=== PATIENT | female | born 1980 | race Caucasian/White ===

== ENCOUNTER 2021-01-14 21:36 | Emergency (ER) | payer BC ==
[~2021-01-14] VITALS: Ht 160 cm; Wt 76.2 kg
[~2021-01-14 21:36] MED LIST: LAMO200T6 PO; ONDA4TAB13 PO; PANT40TA3 PO; PROP80CA55 PO
[2021-01-14 21:46] VITALS: BP 140/111
--- NOTE | 2021-01-14 21:49 | ER.PDOC ---
General Chief Complaint: Requesting Medical Care Stated Complaint: MIGRAINE Source: patient History of Present Illness Initial Comments 41-year-old female with history of migraines presents with complaint of migraine for several days. Per patient her headache is on the left side of her head. She states this is her typical migraine.She states she sees a neurologist who is [place] of the [place] and she has run out of all of her medications. Per patient she took Imitrex Fioricet with codeine Compazine Benadryl and a total of 4500 mg of Tylenol today last dose at 1900. She states she still has pain. Patient complains of photophobia And one episode of vomiting. Allergies: Coded Allergies: metoclopramide (Verified Allergy, Intermediate, 12/25/20) hives, trouble breathing NSAIDS (Non-Steroidal Anti-Inflamma (Verified Allergy, Unknown, throat swells, 08/16/16) Penicillins (Verified Allergy, Unknown, rash, 08/16/16) aspirin (Verified Allergy, Unknown, throat swells, 08/16/16) ciprofloxacin (Verified Allergy, Unknown, rash, 08/16/16) ketorolac (Verified Allergy, Unknown, throat swells, 08/16/16) Home Meds Active Scripts Ondansetron (ONDANSETRON ODT) 4 Mg Tab.rapdis, 4 MG PO Q8 for 7 Days, TAB Prov:TRINO MALHOTRA MD 12/26/20 Pantoprazole Sodium (PROTONIX) 40 Mg Tablet.dr, 40 MG PO DAILY24 for 14 Days Prov:TRINO MALHOTRA MD 12/26/20 Reported Medications Propranolol HCl (Inderal Xl) 80 Mg Cap.er.24h, 1 CAP PO HS for 30 Days, #30 CAP 0 Refills 12/25/20 Lamotrigine (LAMOTRIGINE) 200 Mg Tablet, 300 MG PO BID, TAB 12/25/20 Past Medical History Medical History: asthma, other Surgical History: appendectomy, cholecystectomy, , hysterectomy Social History Drug Use: none Review of Systems Constitutional: no symptoms reported Eyes: photophobia Ears, Nose, Mouth, Throat: no symptoms reported Respiratory: no symptoms reported Cardiovascular: no symptoms reported Gastrointestinal: no symptoms reported Musculoskeletal: no symptoms reported Skin: no symptoms reported Psychiatric/Neurological: headache Physical Exam General Appearance: No Apparent Distress, WD/WN, Other (When I entered the room the patient was on her cell phone. She also ambulated in the emergency department no acute distress no apparent reaction to the amount of light in the hallway.) Head/Eyes: eyes nml inspection, no nystagmus, PERRL ENT: nml ENT inspection Neck: nml inspection, Supple Cardiovascular: Normal Peripheral Pulses, Regular Rate, Rhythm Respiratory: no respiratory distress Extremities: Normal Range of Motion, Normal Inspection Psychiatric: Alert, Oriented x 3 Coordination/Gait: Normal Gait Motor/Sensory: No Motor Deficit Skin: Warm/Dry, Normal Color Results/Orders Results/Orders Orders - VITA VASQUEZ MD Prochlorperazine Edisylate (Compazine) (01/14/21 22:19) 0.9 % Sodium Chloride (Ns 1000ml) (01/14/21 22:30) Haloperidol Lactate (Haldol) (01/14/21 22:19) Diphenhydramine Hcl (Benadryl) (01/14/21 22:19) 0.9 % Sodium Chloride (Ns 1000ml) (01/14/21 22:30) Diphenhydramine Hcl (Benadryl) (01/14/21 22:30) Prochlorperazine Edisylate (Compazine) (01/14/21 22:30) Haloperidol Lactate (Haldol) (01/14/21 22:30) Butalb/Acetaminophen/Caffeine (Fioricet) (01/14/21 22:44) Comprehensive Metabolic Panel (01/14/21 23:40) Acetaminophen(Ml) (01/14/21 23:40) Hydrocodone/Acetaminophen ([place] 5mg) (01/15/21 00:23) Dexamethasone Sodium Phosphate (Decadron (01/15/21 00:30) Dexamethasone Sodium Phosphate (Decadron (01/15/21 00:53) Hydrocodone/Acetaminophen ([place] 5mg) (01/15/21 00:53) Dexamethasone Sodium Phosphate (Decadron (01/15/21 00:55) Vital Signs Date Time Temp Pulse Resp B/P (MAP) Pulse Ox O2 Delivery O2 Flow Rate FiO2 01/14/21 21:46 98.0 85 20 98 01/14/21 21:46 98.0 85 20 527/21 21:46 98.0 85 20 140/111 (121) 98 Room Air Laboratory Tests Test 01/14/21 23:49 Sodium Level 147 mmol/L (132-145) H Potassium Level 3.7 mmol/L (3.6-5.2) Chloride Level 112.0 mmol/L (96-109) H Carbon Dioxide Level 23.0 mmol/L (20.0-32) Anion Gap 15.7 Blood Urea Nitrogen 18 mg/dL (7-18) Creatinine 1.02 mg/dL (0.59-1.40) Estimated GFR () 72.6 (>/=60) Est GFR (CKD-EPI)(Non-Afr [place]) 60.0 (>/=60) BUN/Creatinine Ratio 17.0 Glucose Level 97 mg/dL (70-110) Calcium Level 8.0 mg/dL (8.4-10.5) L Total Bilirubin 0.3 mg/dL (0.2-1.0) Aspartate Amino Transferase (AST) 13 U/L (0-35) Alanine Aminotransferase (ALT) 18 U/L (12-78) Alkaline Phosphatase 91 U/L (50-136) Total Protein 6.1 g/dL (6.4-8.2) L Albumin 3.5 g/dL (3.4-5.0) Globulin 2.6 Albumin/Globulin Ratio 1.346 Acetaminophen Level < 3 ug/mL (10-30) L Progress Progress Patient already has multiple allergies listed. Per patient list she is allergic to all NSAIDs. She states she has already taken 4500 mg of Tylenol today. I attempted to give her Haldol for her pain and she told the nurse that she is allergic to Haldol it makes her call out of her skin. Please note Haldol is not listed on her allergy list. Patient will be given a Fioricet pill along with her normal saline Compazine and Benadryl. ER DEPART Departure Time of Disposition: 01:14 Disposition: 01 HOME / SELF CARE / HOMELESS Impression: Primary Impression: Migraine Condition: Stable Referrals: EMILIE HORVATH MD (PCP) PRIMARY CARE PROVIDER Duration or Time Spent with Pa: 20 min VITA VASQUEZ MD January 14, 2021 21:49
[2021-01-14] MEDS ORDERED: HALDOL IV STA (22:19)
[2021-01-14] MEDS ORDERED: COMPAZINE IV STA (22:19)
[2021-01-14] MEDS ORDERED: BENADRYL IV STA (22:19)
--- NOTE | 2021-01-14 22:20 | NUR ---
PT REPORTS TO ER W/MIGRAINE. PT REPORTS TAKING ALL OF HER PRESCRIBED MEDICATIONS WITHOUT RELIEF. PT REPORTS TAKING TYLENOL 4500 MG TODAY. PT REPORTS BEING OUT OF SEVERAL OF HER MIGRAINE MEDICATIONS. AT BEDSIDE PLAYING ON PHONE
[2021-01-14] MEDS ORDERED: BENADRYL ONE (22:30)
[2021-01-14] MEDS ORDERED: COMPAZINE ONE (22:30)
[2021-01-14] MEDS ORDERED: NS 1000ML 1,000 ML IV ONE (22:30)
[2021-01-14] MEDS ORDERED: NS 1000ML 1,000 ML ONE (22:30)
[2021-01-14] MEDS ORDERED: HALDOL ONE (22:30)
[2021-01-14] MEDS ORDERED: FIORICET PO STA (22:44)
[2021-01-15 00:10] LABS: ALANINE AMINOTRANSFERASE(ML) 18 U/L (12-78); ALKALINE PHOSPHATASE 91 U/L (50-136); ASPARTATE AMINO TRANSFERASE 13 U/L (0-35); GLUCOSE 97 mg/dL (70-110)
[2021-01-15] MEDS ORDERED: NORCO 5MG PO STA (00:23)
[2021-01-15] MEDS ORDERED: DECADRON IV SCH (00:30)
[2021-01-15] MEDS ORDERED: DECADRON ONE ×2 (00:53→00:55)
[2021-01-15] MEDS ORDERED: NORCO 5MG PO ONE (00:53)
--- NOTE | 2021-01-15 01:23 | NUR ---
IV DC'D TIP INTACT, PT REPORTS RELIEF FROM MIGRAINE WITH ER POC. PT AMBLATED TO POV W/OUT DIFFICULTY.
== END 2021-01-15 01:24 | disposition home or self-care (01) ==
LOC: ER 21:36
DX: G43.909 Migraine, unspecified, not intractable, without status migrainosus (principal)
CPT/HCPCS: 36415; 80053; 80299; 96361; 96374; 96375; 99284; J0780; J1100 ×2; J1200; J7030; 99281; J1630

== ENCOUNTER 2021-03-18 22:44 | Emergency (ER) | payer BC ==
[~2021-03-18] VITALS: Ht 160 cm; Wt 76.2 kg
--- NOTE | 2021-03-18 22:45 | NUR ---
Ambulated to Room Ambulated to room. at bedside. Alert and oriented x3. c/o of stomach pains x2 hours with vomiting x6 times. 20g to left wrist x1 attempt. patent with no s/s of edema or redness.
--- NOTE | 2021-03-18 22:50 | NUR ---
Unable to Void at this time for UA
[2021-03-18] MEDS ORDERED: MORPHINE SULFATE IV STA (22:54)
[2021-03-18] MEDS ORDERED: COMPAZINE PO STA ×2 (22:54→23:09)
[2021-03-18] MEDS ORDERED: BENADRYL IV STA (22:54)
--- NOTE | 2021-03-18 22:58 | ER.PDOC ---
General Chief Complaint: Requesting Medical Care Stated Complaint: VOMITING Time seen by MD: 22:57 Source: patient Exam Limitations: no limitations History of Present Illness Initial Comments Patient is a 41-year-old female with a history of seizure disorder presents today with abdominal pain. Symptoms began approximately 2 hours prior to arrival, she describes diffuse abdominal pain with no focal findings. Patient also endorses nausea and vomiting. Pain is constant. Allergies: Coded Allergies: metoclopramide (Verified Allergy, Intermediate, 12/25/20) hives, trouble breathing NSAIDS (Non-Steroidal Anti-Inflamma (Verified Allergy, Unknown, throat swells, 08/16/16) Penicillins (Verified Allergy, Unknown, rash, 08/16/16) aspirin (Verified Allergy, Unknown, throat swells, 08/16/16) ciprofloxacin (Verified Allergy, Unknown, rash, 08/16/16) ketorolac (Verified Allergy, Unknown, throat swells, 08/16/16) Home Meds Active Scripts Ondansetron (ONDANSETRON ODT) 4 Mg Tab.rapdis, 4 MG PO Q8 for 7 Days, TAB Prov:TRINO MALHOTRA MD 12/26/20 Pantoprazole Sodium (PROTONIX) 40 Mg Tablet.dr, 40 MG PO DAILY24 for 14 Days Prov:TRINO MALHOTRA MD 12/26/20 Reported Medications Propranolol HCl (Inderal Xl) 80 Mg Cap.er.24h, 1 CAP PO HS for 30 Days, #30 CAP 0 Refills 12/25/20 Lamotrigine (LAMOTRIGINE) 200 Mg Tablet, 300 MG PO BID, TAB 12/25/20 Vital Signs First Vital Signs Date Time Temp Pulse Resp B/P (MAP) Pulse Ox O2 Delivery O2 Flow Rate FiO2 03/18/21 23:28 97.8 110 18 151/82 (105) 95 Room Air Last Vital Signs Date Time Temp Pulse Resp B/P (MAP) Pulse Ox O2 Delivery O2 Flow Rate FiO2 03/18/21 23:28 97.8 110 18 03/18/21 23:28 151/82 (105) 95 Room Air Past Medical History Medical History: asthma, other Surgical History: appendectomy, cholecystectomy, , hysterectomy Social History Drug Use: none Reviewed Nursing Reviewed: Vital Signs, Abn. Noted, Nursing Assessment Constitutional: denies no symptoms reported, denies see HPI, denies chills, denies diaphoresis, denies fever, denies malaise, denies weakness, denies other EENTM: denies no symptoms reported, denies see HPI, denies eye pain, denies blurred vision, denies tearing, denies double vision, denies ear pain, denies ear discharge, denies nose pain, denies nose congestion, denies throat pain, denies throat swelling, denies mouth pain, denies mouth swelling, denies other Respiratory: denies no symptoms reported, denies see HPI, denies cough, denies orthopnea, denies shortness of breath, denies SOB with exertion, denies SOB at rest, denies stridor, denies wheezing, denies other Cardiovascular: denies no symptoms reported, denies see HPI, denies chest pain, denies edema, denies irregular heart rate, denies lightheadedness, denies palpitations, denies syncope, denies other Gastrointestinal: see HPI Genitourinary: denies no symptoms reported, denies see HPI, denies burning, denies dysuria, denies discharge, denies frequency, denies flank pain, denies hematuria, denies incontinence, denies pain, denies urgency, denies other Musculoskeletal: denies no symptoms reported, denies see HPI, denies back pain, denies gout, denies joint pain, denies joint swelling, denies muscle pain, denies muscle stiffness, denies neck pain, denies other Skin: denies no symptoms reported, denies see HPI, denies change in color, denies change in hair/nails, denies dryness, denies lesions, denies lumps, denies rash, denies other Psychiatric/Neurological: denies no symptoms reported, denies see HPI, denies anxiety, denies depressed, denies emotional problems, denies headache, denies numbness, denies paresthesia, denies pre-existing deficit, denies seizure, denies tingling, denies tremors, denies weakness, denies other Endocrine: denies no symptoms reported, denies see HPI, denies excessive sweating, denies flushing, denies intolerance to cold, denies intolerance to heat, denies increased hunger, denies increased thrist, denies increased urine, denies unexplained weight gain, denies unexplaned weight loss, denies other Hematologic/Lymphatic: denies no symptoms reported, denies see HPI, denies anemia, denies blood clots, denies easy bleeding, denies easy bruising, denies swollen glands, denies other All Other Systems: Reviewed and Negative Physical Exam General Appearance: No Apparent Distress, WD/WN HEENT: PERRL/EOMI, Normal ENT Inspection, TMs Normal, Pharynx Normal Neck: Non-Tender, Full Range of Motion, Supple, Normal Inspection Respiratory: chest non-tender, lungs clear, normal breath sounds, no respiratory distress, no accessory muscle use Cardiovascular: Normal Peripheral Pulses, Regular Rate, Rhythm, No Edema, No Gallop, No JVD, No Murmur Gastrointestinal: Soft, Tenderness Extremities: Normal Range of Motion, Non-Tender, Normal Inspection, No Pedal Edema, No Calf Tenderness, Normal Capillary Refill, Pelvis Stable Neurologic/Psychiatric: card placer II-XII NML as Tested, No Motor/Sensory Deficits, Alert, Normal Mood/Affect, Oriented x 3 Skin: Normal Color, Warm/Dry Lymphatic: No Adenopathy Results/Orders Results/Orders Orders - FRANCESCO SAWYER DO Cbc With Auto Diff (03/18/21 22:54) Comprehensive Metabolic Panel (03/18/21 22:54) Amylase (03/18/21 22:54) Lipase (03/18/21 22:54) Helicobacter Pylori (03/18/21 22:54) PT (03/18/21 22:54) Ct Abd/Pel With Iv Contrast (03/18/21 22:54) Partial Thromboplastin Time. (03/18/21 22:54) Urinalysis (03/18/21 22:54) Saline Lock (03/18/21 22:54) Prochlorperazine Maleate (Compazine) (03/18/21 22:54) Diphenhydramine Hcl (Benadryl) (03/18/21 22:54) Morphine Sulfate (Morphine Sulfate) (03/18/21 22:54) Hcg Qualitative Serum (03/18/21 22:54) Diphenhydramine Hcl (Benadryl) (03/18/21 23:02) Morphine Sulfate (Morphine Sulfate) (03/18/21 23:02) Prochlorperazine Maleate (Compazine) (03/18/21 23:09) Haloperidol Lactate (Haldol) (03/19/21 00:25) Haloperidol Lactate (Haldol) (03/19/21 00:30) Vital Signs Date Time Temp Pulse Resp B/P (MAP) Pulse Ox O2 Delivery O2 Flow Rate FiO2 03/18/21 23:28 97.8 110 18 03/18/21 23:28 97.8 110 18 03/18/21 23:28 97.8 110 18 151/82 (105) 95 Room Air Administered Medications Medications (Trade) Dose Ordered Sig/[place] Route PRN Reason Start Time Stop Time Status Last Admin Dose Admin Diphenhydramine HCl (Benadryl) 25 mg STAT STAT IV 03/18/21 22:54 03/18/21 22:58 DC 03/18/21 23:08 25 MG Morphine Sulfate (Morphine Sulfate) 2 mg STAT STAT IV 03/18/21 22:54 03/18/21 22:58 DC 03/18/21 23:08 2 MG Prochlorperazine Maleate (Compazine) 10 mg STAT STAT PO 03/18/21 23:09 03/18/21 23:11 DC 03/18/21 23:10 10 MG Laboratory Tests Test 03/18/21 00:00 03/18/21 23:05 Urine Collection Type CCMS Urine Color YELLOW Urine Appearance CLEAR Urine Bilirubin NEGATIVE (NEGATIVE) Urine Ketones NEGATIVE (NEGATIVE) Urine Specific [place] <=1.005 (1.005-1.030) Urine pH 5.5 (4.5-8.0) Urine Protein NEGATIVE (NEGATIVE) Urine Urobilinogen 0.2 E.U./dL (0.2) Urine Nitrate NEGATIVE (NEGATIVE) Urine Leukocyte Esterase NEGATIVE (NEGATIVE) Urine Glucose (Auto)(UA) NEGATIVE (NEGATIVE) Urine Blood NEGATIVE (NEGATIVE) White Blood Count 18.1 10^3/uL (4.5-11.0) H Red Blood Count 5.19 10^6/uL (4.00-5.20) Hemoglobin 15.6 g/dL (12.0-15.0) H Hematocrit 46.8 % (36.0-46.0) H Mean Corpuscular Volume 90.2 fL (78-100) Mean Corpuscular Hemoglobin 30.1 pg (26-34) Mean Corpuscular Hemoglobin Concent 33.3 g/dL (33-36.5) Red Cell Distribution Width 12.1 % (11.5-14.5) Platelet Count 256 10^3/uL (150-400) Mean Platelet Volume 11.6 fL (7.8-11.0) H Neutrophils (%) (Auto) 87.8 % (41.0-85.0) H Lymphocytes (%) (Auto) 8.5 % (24.0-44.0) L Monocytes (%) (Auto) 3.0 % (5.0-12.0) L Neutrophils # (Auto) 15.9 10^3/uL (1.8-7.7) H Lymphocytes # (Auto) 1.54 10^3/uL1 (1.0-4.8) Monocytes # (Auto) 0.6 10^3/uL (0.3-0.8) Absolute Immature Granulocyte (auto 0.03 10^3 u/L (0-2) Absolute Eosinophils (auto) 0.1 10^3/uL (0.0-0.2) Immature Granulocytes % 0.20 % (0.00-0.50) Eosinophils % 0.3 % (0.0-5.0) Basophils % 0.2 % (0.0-0.2) Basophils # 0.0 10^3/uL (0.0-0.1) Prothrombin Time 11.0 SEC (9.6-12.0) Prothrombin Time INR (Non-Therap) 1.0 Activated Partial Thromboplast Time 22.7 SEC (24.67-30.72) Sodium Level 144 mmol/L (132-145) Potassium Level 4.1 mmol/L (3.6-5.2) Chloride Level 108.0 mmol/L (96-109) Carbon Dioxide Level 24.0 mmol/L (20.0-32) Anion Gap 16.1 Blood Urea Nitrogen 17 mg/dL (7-18) Creatinine 1.00 mg/dL (0.59-1.40) Estimated GFR () 74.3 (>/=60) Est GFR (CKD-EPI)(Non-Afr [place]) 61.4 (>/=60) BUN/Creatinine Ratio 17.0 Glucose Level 108 mg/dL (70-110) Calcium Level 8.8 mg/dL (8.4-10.5) Total Bilirubin 0.3 mg/dL (0.2-1.0) Aspartate Amino Transferase (AST) 22 U/L (0-35) Alanine Aminotransferase (ALT) 46 U/L (12-78) Alkaline Phosphatase 111 U/L (50-136) Total Protein 7.2 g/dL (6.4-8.2) Albumin 4.1 g/dL (3.4-5.0) Globulin 3.1 Albumin/Globulin Ratio 1.322 Amylase Level 76 U/L (25-115) Lipase 147 U/L (114-286) Serum HCG, Qualitative NEGATIVE (NEGATIVE) Helicobacter pylori Screen NEGATIVE (NEGATIVE) Progress Progress Patient's work-up is reassuring with the exception of a mild leukocytosis. CT scan shows no acute etiology for the patient's pain. At time of discharge patient was resting comfortably, counseled the patient against using her vape pen while in the hospital. Patient was discharged with a prescription for Bentyl and Zofran given return precautions, she voiced understanding and agrees with plan ER DEPART Departure Time of Disposition: 00:33 Disposition: 01 HOME / SELF CARE / HOMELESS Impression: Primary Impression: Gastroenteritis Additional Impressions: Abdominal pain Leukocytosis Condition: Improved Patient Instructions: Abdominal Pain (Nonspecific) Referrals: EMILIE HORVATH MD (PCP) PRIMARY CARE PROVIDER Duration or Time Spent with Pa: 0 Problem Qualifiers Additional Impressions: Abdominal pain Abdominal location: generalized Qualified Codes: R10.84 - Generalized abdominal pain Leukocytosis Leukocytosis type: unspecified Qualified Codes: D72.829 - Elevated white blood cell count, unspecified FRANCESCO SAWYER DO Mar 18, 2021 22:58
[2021-03-18] MEDS ORDERED: MORPHINE SULFATE ONE (23:02)
[2021-03-18] MEDS ORDERED: BENADRYL ONE (23:02)
[2021-03-18 23:13] LABS: BASOPHIL % 0.2 % (0.0-0.2); EOSINOPHIL # 0.1 10^3/uL (0.0-0.2); EOSINOPHIL % 0.3 % (0.0-5.0); LYMPHOCYTES # 1.54 10^3/uL1 (1.0-4.8); LYMPHOCYTES % 8.5 % (24.0-44.0); MEAN CORP HGB 30.1 pg (26-34); MONOCYTES # 0.6 10^3/uL (0.3-0.8); NEUTROPHIL # 15.9 10^3/uL (1.8-7.7); NEUTROPHILS % 87.8 % (41.0-85.0); PLATELET COUNT 256 10^3/uL (150-400); RED CELL DISTRIBUTION WIDTH 12.1 % (11.5-14.5)
[2021-03-18 23:27] LABS: CALCIUM 8.8 mg/dL (8.4-10.5)
[2021-03-18 23:28] VITALS: BP 151/82
--- NOTE | 2021-03-18 23:35 | NUR ---
Left unit for CT
--- NOTE | 2021-03-18 23:50 | NUR ---
Return from CT
--- NOTE | 2021-03-19 00:10 | DIREP ---
PROCEDURE:CT ABD/PELVIS W/ CONTRAST TECHNIQUE:Following the intravenous administration of contrast material, venous phase cuts were obtained through the abdomen and pelvis. The images were viewed at lung and soft tissue settings. Sagittal and coronal reconstructions are provided. COMPARISON:[facility], CT, CT ABD/PELVIS W/ CONTRAST, 12/25/2020, 01:43 PM. INDICATIONS:diffuse abd pain FINDINGS: LOWER CHEST:The lung bases are clear. Pericardial thickening measuring 1.2 cm left posterior series 2, image 9. LIVER:Normal. BILIARY:Previous cholecystectomy. PANCREAS:Normal. SPLEEN:Normal. URINARY TRACT:Scarring right kidney. ADRENALS:Normal. AORTA/VASCULAR:Normal. RETROPERITONEUM:Normal. BOWEL/MESENTERY:Normal. Appendix not visualized. ABDOMINAL WALL:Normal. PELVIS:Previous hysterectomy. BONES:Hardware in the right acetabulum and left femoral shaft. OTHER:Normal. CONCLUSION: 1. No acute abnormalities to explain the patient's abdominal pain. 2. Pericardial thickening. 3. Other findings as detailed above. Dictated by: Darrell Alberto M.D. on 03/19/2021 at 00:03 AM
[2021-03-19] MEDS ORDERED: HALDOL IM STA (00:25)
[2021-03-19 00:27] LABS: BILIRUBIN,URINE NEGATIVE (NEGATIVE); UA COLOR YELLOW
[2021-03-19 00:28] LABS: UROBILINOGEN,URINE 0.2 E.U./dL (0.2)
[2021-03-19] MEDS ORDERED: HALDOL IV ONE (00:30)
[2021-03-19] MEDS ORDERED: HALDOL ONE (00:32)
[2021-03-19] MEDS ORDERED: ZOFRAN ODT ONE (01:13)
[2021-03-19] MEDS ORDERED: ZOFRAN ODT SL STA (01:32)
== END 2021-03-19 01:15 | disposition home or self-care (01) ==
LOC: ER 22:44
DX: G40.909 Epilepsy, unspecified, not intractable, without status epilepticus (principal); J45.909 Unspecified asthma, uncomplicated; K52.9 Noninfective gastroenteritis and colitis, unspecified; Z79.899 Other long term (current) drug therapy; Z88.0 Allergy status to penicillin; Z88.1 Allergy status to other antibiotic agents; Z88.6 Allergy status to analgesic agent; Z90.49 Acquired absence of other specified parts of digestive tract; Z90.710 Acquired absence of both cervix and uterus
CPT/HCPCS: 36415; 74177; 80053; 81003; 82150; 83690; 84703; 85025; 85610; 85730; 86677; 96374; 96375; 99285; J1200; Q9965; J1630